=== PATIENT | female | born 1950 ===

== ENCOUNTER 2024-07-20 11:28 | Inpatient (IN) | payer MEDICARE, OTHER, SELFPAY ==
[2024-07-08 14:21] VITALS: BMI 23.5
[2024-07-08 14:22] LABS: Hematocrit 36.2 % (37.0-47.0); Hemoglobin 11.8 g/dL (12.0-16.0); Mean Corp Hgb Conc. 32.6 g/dL (33.0-37.0); Mean Corpuscular Hgb 29.4 pg (27.0-31.0); Mean Platelet Volume 8.9 fL (7.4-10.4); Platelet Count 251 10^3/uL (130-400); Red Blood Cell Count 4.02 10^6/uL (4.20-5.40); Red Cell Dist. Width 13.4 % (11.5-14.5); White Blood Cell Count 4.7 10^3/uL (4.8-10.8)
[2024-07-08 15:32] LABS: ALT (SGPT) 24 U/L (0-35); AST (SGOT) 27 U/L (14-36); Albumin 4.1 g/dl (3.5-5.0); Alkaline Phosphatase 72 U/L (38-126); Blood Urea Nitrogen 24 mg/dl (7-17); Calcium 9.8 mg/dl (8.4-10.2); Carbon Dioxide 31 mmol/L (22-30); Chloride 101 mmol/L (98-107); Estimated Creatinine Clearance 65 ml/min; Glucose 130 mg/dl (70-99); Potassium 4.3 mmol/L (3.5-5.1); Sodium 138 mmol/L (135-145); Total Bilirubin 0.4 mg/dl (0.2-1.3); Total Protein 6.7 g/dl (6.3-8.2); eGFR > 60.00
[2024-07-08 15:38] LABS: Iron 104 ug/dl (37-170)
[2024-07-08 15:47] LABS: Percent Saturation 28 % (20-50); Total Iron Binding Capacity 361 ug/dl (265-497)
[2024-07-08 16:40] LABS: Ferritin 42.8 ng/ml (11.1-264.0)
[2024-07-08 17:12] LABS: Vitamin B12 286 pg/ml (239-931)
[2024-07-09 08:13] LABS: Glycohemoglobin (HgbA1c) 5.9 % (4.0-5.6)
[2024-07-14 09:00] VITALS: BMI 23.5
--- NOTE | 2024-07-14 10:02 | VNURNOTE ---
Chart reviewed. Rec'ed update via T.T. from Estrella Oliva that patient will most likely need home PT, VN after DC. [facility] referral placed in [facility]. Patient will have a CM during hospital admission to further assess DC dispo. Liaison will
follow up after surgery.
[2024-07-20] VITALS (11 sets, daily range): BP systolic 101–130; BP diastolic 55–87; BMI 23.5
--- NOTE | 2024-07-20 09:05 | W.PN.UPDATE ---
Update Note
Progress Note Update
R knee OA s/p R TKA w/ Dr Cleveland 07/20/24
- s/p L TKA, 2012, by Dr Cleveland and Anne HARDEN, 2016, and R FINA, 2019, by Dr Hernandez
DVT prophylaxis - ASA, b/l venous foot pumps
PVCs, asymptomatic - monitor on tele
GERD and remote GI bleed per records - add daily Protonix
- Minimize NSAIDs as able
Chronic constipation - add nightly MOM to bowel regimen of Colace and Senna
Sciatica - consider Gabapentin or Lyrica
Chronic mild anemia, anemia panel unremarkable - non-invasive hgb in AM
Venous varicosities
Chronic dyspnea on exertion
Diverticulosis.
Multilevel degenerative disc disease
Hypothyroidism
Stress incontinence
ADHD
Insomnia.
Prediabetes, A1c 5.9
Remote history of tobacco abuse
The patient is an appropriate candidate for early discharge
[2024-07-20] MEDS: CELEBREX 200 MG PO (11:49)
[2024-07-20] MEDS: NORMOSOL-R/PLASMALYTE-A 1000 IV ×2 (11:49→17:35)
[2024-07-20] MEDS: TYLENOL 650 MG PO ×3 (11:49→20:36)
[2024-07-20] MEDS: ROXICODONE 5 MG PO (16:43)
[2024-07-20] MEDS: ASPIRIN 325 MG PO (17:35)
[2024-07-20] MEDS: PROTONIX 40 MG PO (17:35)
--- NOTE | 2024-07-20 17:35 | PTCARENOTE ---
Patient arrived to unit s/p R Knee Replacement. No pain reported, able to wiggle toes/slightly lift leg off the bed.
[2024-07-20] MEDS: DECADRON 4 MG PO (20:36)
[2024-07-20] MEDS: SENOKOT 17.2 MG PO (20:36)
[2024-07-20] MEDS: COLACE 100 MG PO (20:36)
[2024-07-20] MEDS: BACTROBAN 2% OINTMENT 1 APPLIC NASAL (20:37)
[2024-07-20] MEDS: MILK OF MAGNESIA 30 ML PO (21:40)
[2024-07-20] MEDS: ANCEF 5 IV (21:40)
[2024-07-20] MEDS: ROXICODONE 10 MG PO (21:46)
[2024-07-21] MEDS: TYLENOL PO ×2 (01:00→05:00)
[2024-07-21 03:07] VITALS: BP 109/59
[2024-07-21] MEDS: ANCEF 5 IV (05:24)
[2024-07-21] MEDS: SYNTHROID 75 MCG PO (05:25)
[2024-07-21] MEDS: ROXICODONE 5 MG PO (06:04)
[2024-07-21 07:28] VITALS: BP 122/65
[2024-07-21] MEDS: DECADRON 4 MG PO (07:40)
[2024-07-21] MEDS: TYLENOL 650 MG PO (07:40)
[2024-07-21] MEDS: BACTROBAN 2% OINTMENT 1 APPLIC NASAL (07:40)
[2024-07-21] MEDS: PROTONIX 40 MG PO (07:40)
[2024-07-21] MEDS: COLACE 100 MG PO (07:40)
[2024-07-21] MEDS: SENOKOT 17.2 MG PO (07:40)
[2024-07-21] MEDS: ASPIRIN 325 MG PO (07:40)
[2024-07-21 08:36] VITALS: BP 121/68; BP 132/63; BP 140/71; PULSE 73; PULSE 76; O2SAT 98
[2024-07-21 09:54] VITALS: BP 126/63; PULSE 70; O2SAT 97
[2024-07-21] MEDS: ANTIVERT 12.5 MG PO (09:59)
[2024-07-21] MEDS: TORADOL 30 MG IV (09:59)
[2024-07-21] MEDS: LIDOCAINE 4% PATCH 2 PATCH TOPICAL (10:01)
[2024-07-21] MEDS: CODEINE 15 MG PO (10:01)
--- NOTE | 2024-07-21 10:13 | W.PN.ORTHO ---
Today's Communication / Plan
-
Did overall well w/ OT, PT despite reported dizziness.
Given dizziness is improving and pt eager to go home, will d/c today.
Assessment
.
Distal Motor Intact: Yes
Dressing:
Scant areas of old incisional bleeding along incision line.
Assessment:
R knee OA s/p R TKA w/ Dr Cleveland 07/20/24
- s/p L TKA, 2012, by Dr Cleveland and L TSA, 2017, and R TSA, 2019, by Dr Hernandez
DVT prophylaxis - ASA, b/l venous foot pumps
Mild post-op dizziness likely 2* underlying vestibular dysfunction and Oxycodone (reportedly stopped abruptly after prior TKA d/t similar sx)
- Stop Oxycodone in favor of Tylenol with Codeine, Lidocaine patches, and short term course of Celebrex
- Meclizine, anti-emetics as needed -> will Rx for d/c
- Pt previously Rx script for vestibular therapy per PCP. Encouraged pt to follow up
- Dizziness noted to improve w/ PT session. Non-limiting. Pt eager for d/c today.
PVCs, asymptomatic - maintaining NSR on tele
GERD and remote GI bleed per records - continue daily Protonix while on short-term course of Celebrex for post-surgical pain
Chronic constipation - added daily Miralax (pt preference) to bowel regimen of Colace and Senna
Sciatica - consider Gabapentin or Lyrica
Chronic mild anemia, anemia panel unremarkable - non-invasive hgb 11.5 POD 1
- Hemodynamically stable
Venous varicosities
Chronic dyspnea on exertion
Diverticulosis.
Multilevel degenerative disc disease
Hypothyroidism
Stress incontinence
ADHD
Insomnia.
Prediabetes, A1c 5.9
Remote history of tobacco abuse
The patient is an appropriate candidate for early discharge
Plan
.
Surgery / Date: R TKA w/ Dr Cleveland 07/20/24
DVT Prophylaxis: Aspirin
Activity:
Out of bed.
PT/OT
Discharge Plan: Home w/ VN
Subjective
.
.:
Patient examined resting in bed after therapy.
Reporting 6/10 pain; however due for pain meds.
Mild dizziness, likely 2* underlying vestibular dysfunction and Oxycodone. VSS.
Still eager for potential d/c today.
Vital Signs and Labs
.
Vital Signs and Labs:
Lab Results
07/08/24 14:05
07/08/24 14:05
Temp Pulse Resp BP Pulse Ox
98.1 F 72 16 122/65 98
07/21/24 07:28 07/21/24 07:28 07/21/24 07:28 07/21/24 07:28 07/21/24 07:28
Non-invasive Hgb result: 11.5
Physical Exam
-
HEENT: No pallor, cyanosis, or jaundice. Throat clear.
NECK: Supple. No JVD.
RESPIRATORY: Lungs clear to auscultation.
CVS: S1, S2 normal. RRR.�
ABDOMEN: Soft, non-tender. No distension.
EXTREMITIES: Expected post-surgical R knee edema. Strength equal, no calf pain with palpation/dorsiflexion. Calves soft.
GASOLINE ATTENDANT: AOx3. No focal deficits. tissue specialist grossly intact
--- NOTE | 2024-07-21 10:17 | W.DS.TRANS ---
DC Summary - Keno Writer/Runner
-
Discharge Instructions:
Sleep Apnea Risk Low
Discharge Diagnosis/Procedures R knee OA s/p R TKA w/ Dr Cleveland 07/20/24
Diet Regular
Activity As tolerated,With Walker
Driving Restrictions Not until seen by your Dr
Bathing Restrictions OK to Shower
Other Services PT,VN
Wound Care Dressing to be removed 1 week post-surgery.
[place] to be removed at 2 week follow-up with
surgeon's office.
Instructions:
Stand-Alone Forms: Total Hip/Knee Replacement D/C
Changes to Home Medications: Yes
Discharge Medications:
DC Medications w/original date entered in [facility]
levothyroxine 50 mcg tablet 75 mcg PO DAILY@0700 Thyroid 04/17/12
dextroamphetamine-amphetamine ER 20 mg 24hr capsule,extend release (Adderall XR) 40 mg PO DAILY Mental Health/Anxiety 07/09/16
multivitamin with folic acid 400 mcg tablet (Tab-A-Karolina) 1 tab PO DAILY Supplement 07/09/16
collagen 2 gummy PO DAILY Supplement 07/03/24
mupirocin 2 % topical ointment 1 applic intranasal BID #1 tube 07/08/24
acetaminophen 300 mg-codeine 30 mg tablet 1 - 2 tab PO Q6H PRN moderate-severe pain #30 tabs 07/21/24
acetaminophen 325 mg tablet 650 mg (2 x 325 mg) PO Q4HPRN PRN mild pain #60 tabs 07/21/24
aspirin 325 mg tablet 325 mg PO DAILY #30 tabs 07/21/24
celecoxib 200 mg capsule (Celebrex) 200 mg PO DAILY #14 caps 07/21/24
dexamethasone 4 mg tablet 4 mg PO BID Anti-inflammatory #5 tabs 07/21/24
docusate sodium 100 mg capsule 100 mg PO BID #30 caps 07/21/24
lidocaine 4 % topical patch 2 patch topical DAILY #30 ea 07/21/24
meclizine 12.5 mg tablet 12.5 mg PO TID PRN dizziness #10 tabs 03/18/25
ondansetron 4 mg disintegrating tablet 4 mg PO Q6H PRN nausea and vomiting #30 tabs 07/21/24
pantoprazole 40 mg tablet,delayed release 40 mg PO DAILY #30 tabs 07/21/24
polyethylene glycol 3350 17 gram oral powder packet (Miralax) 17 g PO DAILY #30 ea 07/21/24
sennosides 8.6 mg tablet (Judith-cyrus) 17.2 mg (2 x 8.6 mg) PO BID #30 tabs 07/21/24
Home Medication Changes
acetaminophen 300 mg-codeine 30 mg tablet 1 - 2 tab PO Q6H PRN moderate-severe pain #30 tabs 07/21/24
acetaminophen 325 mg tablet 650 mg (2 x 325 mg) PO Q4HPRN PRN mild pain #60 tabs 07/21/24
aspirin 325 mg tablet 325 mg PO DAILY #30 tabs 07/21/24
celecoxib 200 mg capsule (Celebrex) 200 mg PO DAILY #14 caps 07/21/24
dexamethasone 4 mg tablet 4 mg PO BID Anti-inflammatory #5 tabs 07/21/24
docusate sodium 100 mg capsule 100 mg PO BID #30 caps 07/21/24
lidocaine 4 % topical patch 2 patch topical DAILY #30 ea 07/21/24
meclizine 12.5 mg tablet 12.5 mg PO TID PRN dizziness #10 tabs 07/21/24
ondansetron 4 mg disintegrating tablet 4 mg PO Q6H PRN nausea and vomiting #30 tabs 07/21/24
pantoprazole 40 mg tablet,delayed release 40 mg PO DAILY #30 tabs 07/21/24
polyethylene glycol 3350 17 gram oral powder packet (Miralax) 17 g PO DAILY #30 ea 07/21/24
sennosides 8.6 mg tablet (Judith-cyrus) 17.2 mg (2 x 8.6 mg) PO BID #30 tabs 07/21/24
Pending Results: No
--- NOTE | 2024-07-21 10:53 | CM ---
Initial assessment completed
Pt reports she lives with her in a 4 story home; 5 HEATH, 14 steps to 2nd fl
Independent at baseline, drives. no devices
DME - rolling walker, toilet rails, shower chair, single point cane
SNF - denies past hx
HH - [facility] in past
Has ride home -
PCP - Justin Callaway
Pharm - [facility] in [place]
PT/OT recs - HH - prefers [facility]
TT sent to VN Liaison for HH needs
Given IMM
Plan - home with VN
--- NOTE | 2024-07-21 10:56 | VNURNOTE ---
Home Health Liaison met with patient and spouse at bedside to discuss [facility] nurse/therapy, visits, schedule and homebound status. Patient is agreeable and understands that visits at home will be 2-3 x per week to assess and teach medical management.
Patient stated she has had [facility] services after joint surgeries in the past. Patient is aware that [facility] will contact them for start of care in 1-2 days after discharge from .
[facility] referral accepted in [facility].
== END 2024-07-21 11:33 | disposition home health service (06) | DRG 470 ==
LOC: 2 SOUTH 11:28
PROVIDERS: ADMITTING PHYSICIAN Specialist; FAMILY PHYSICIAN Internal Medicine Geriatric Medicine
PROC: 0SRC0J9 Replacement of Right Knee Joint with Synthetic Substitute, Cemented, Open Approach (ICD-10-PCS; 2024-07-20)
DX: M17.11 Unilateral primary osteoarthritis, right knee (principal); K59.09 Other constipation; M54.30 Sciatica, unspecified side; K57.30 Diverticulosis of large intestine without perforation or abscess without bleeding; E03.9 Hypothyroidism, unspecified; N39.3 Stress incontinence (female) (male); F90.9 Attention-deficit hyperactivity disorder, unspecified type; G47.00 Insomnia, unspecified; R73.03 Prediabetes; Z87.891 Personal history of nicotine dependence; K21.9 Gastro-esophageal reflux disease without esophagitis; I49.3 Ventricular premature depolarization; Z96.612 Presence of left artificial shoulder joint; Z96.611 Presence of right artificial shoulder joint; R06.09 Other forms of dyspnea
CPT/HCPCS: 36415; 73560; 80053; 82607; 82728; 82746; 83036; 83540; 83550; 85027; 86850; 86900; 86901; 87070; 93005; 97110; 97116; 97162; 97166; 97530; 97535; C1713; C1776